=== PATIENT | female | born 1970 | race American Indian/Alaskan Native ===

== ENCOUNTER 2019-07-23 11:26 | Emergency (ER) | payer OTHER ==
--- NOTE | 2019-07-23 11:24 | EDM.PDOC ---
ED HPI GENERAL MEDICAL PROBLEM - General Chief Complaint: Skin Complaint Stated Complaint: AMBULANCE Time Seen by Provider: 07/23/19 11:30 Source of Information: Reports: Patient History Limitations: Reports: No Limitations - History of Present Illness INITIAL COMMENTS - FREE TEXT/NARRATIVE: patient comes to the emergency department today by ambulance from the [facility] clinic with concerns of a painful lump in her right axilla. The last time the patient shaves her armpits was about a week ago. She noticed on Saturday that she had a small lump in her axilla that is slowly gotten worse over the past few days. It is gotten much larger. It is painful hot. She denies any fever or chills. It was noted that her blood pressure was in the 90s systolically at the [facility] clinic. She was given 2 L of fluid prior to transfer. She denies any weakness dizziness lightheadedness. No chest pain or shortness of breath or difficulty breathing. No pain or paresthesia of the right upper extremity other than to the area of induration in the right axilla. Other Treatments [employer]: 0330 Ibuprofen 600 mg and cold medication taken. Right Axillary Pain Score (Numeric/FACES): 8 - Related Data Allergies Allergy/AdvReac Type Severity Reaction Status Date / Time No Known Allergies Allergy Verified 07/23/19 11:05 Home Meds: Home Meds ISOtretinoin [Absorica] 30 mg PO QPM 07/23/19 [History] Multivitamin [Multivitamins] 1 each PO DAILY 07/23/19 [History] ED ROS GENERAL - Review of Systems Review Of Systems: ROS reveals no pertinent complaints other than HPI. ED EXAM, SKIN/RASH Exam: See Below Exam Limited By: No Limitations General Appearance: Alert, WD/WN, Mild Distress (mildly uncomfortable in pain) Head: Atraumatic, Normocephalic Neck: Normal Inspection, Supple Respiratory/Chest: No Respiratory Distress, Lungs Clear, Normal Breath Sounds, No Accessory Muscle Use Cardiovascular: Normal Peripheral Pulses, Regular Rate, Rhythm Peripheral Pulses: 2+: Radial (L), Radial (R) GI/Abdominal: Normal Bowel Sounds, Soft, Non-Tender Back Exam: Normal Inspection Extremities: No: Normal Inspection (examination of the right axilla. There is about a golf ball sized area of erythema induration with fluctuance in the crease of the axilla. This is quite superficial it is hot red and tender. There is no streaks. I do not feel any lymphadenopathy. Examination of the right breast is unremarkable without any erythema lumps or tenderness. The rest of the exam the right upper extremity is unremarkable.) Neurological: Alert, Oriented Location, Skin: Upper Extremity, Right (see extremity exam above for the concerns of an abscess in the right axilla), Axillary (abscess right axilla) Associated features: Warmth, Tenderness, Swelling, Induration Lymphatic: No Adenopathy ED SKIN PROCEDURES - I&D Skin Prep: Providone-Iodine (Betadine) Local Anesthesia: Lidocaine: 1% with EPI Local Anesthesia - Bupivicaine (Marcaine): 0.5% Plain Local Anesthetic Volume: Other (10) Area Incised With: 11 Blade Drainage: Purulent, Bloody, Small Amount Probed to Break Up Loculations: Yes Packed With: 1/4 in. Iodoform Complications: No Course - Vital Signs Last Recorded V/S: Last Vital Signs Temp 36.8 C 07/23/19 10:59 Pulse 79 07/23/19 10:59 Resp 18 07/23/19 10:59 BP Pulse Ox 100 07/23/19 10:59 - Orders/Labs/Meds Orders: Active Orders 24 hr Category Date Time Status CULTURE BLOOD [BC] Stat Lab 07/23/19 11:16 Received CULTURE BLOOD [BC] Stat Lab 07/23/19 11:21 Received CULTURE WOUND + SMEAR [RM] Stat Lab 07/23/19 12:07 Results Blood Culture x2 Reflex Set [OM.PC] Stat Oth 07/23/19 11:07 Ordered Labs: Laboratory Tests 07/23/19 07/23/19 07/23/19 Range/Units 11:16 11:16 11:16 WBC 15.9 H (5.0-10.0) 10^3/uL RBC 4.35 (4.2-5.4) 10^6/uL Hgb 13.0 (12.0-16.0) g/dL Hct 39.1 (37.0-47.0) % MCV 89.9 (80-100) fL MCH 29.9 (27.0-34.0) pg MCHC 33.2 (33.0-35.0) g/dL Plt Count 227 (150-450) 10^3/uL Neut % (Auto) 80.0 H (42.2-75.2) % Lymph % (Auto) 11.6 L (20.5-50.1) % Metcalfe % (Auto) 7.5 (2-8) % Eos % (Auto) 0.8 L (1.0-3.0) % Baso % (Auto) 0.1 (0.0-1.0) % Sodium 137 (135-145) mmol/L Potassium 3.5 L (3.6-5.0) mmol/L Chloride 106 (101-111) mmol/L Carbon Dioxide 24.0 (21.0-31.0) mmol/L Anion Gap 10.5 BUN 12 (7-18) mg/dL Creatinine 0.6 (0.6-1.3) mg/dL Est Cr Clr Drug Dosing 102.06 mL/min Estimated GFR (MDRD) > 60 Glucose 92 (74-105) mg/dL Lactic Acid 0.9 (0.5-2.2) mmol/L Calcium 7.8 L (8.4-10.2) mg/dl C-Reactive Protein (0.0-1.3) mg/dL 07/23/ Range/Units 11:16 WBC (5.0-10.0) 10^3/uL RBC (4.2-5.4) 10^6/uL Hgb (12.0-16.0) g/dL Hct (37.0-47.0) % MCV (80-100) fL MCH (27.0-34.0) pg MCHC (33.0-35.0) g/dL Plt Count (150-450) 10^3/uL Neut % (Auto) (42.2-75.2) % Lymph % (Auto) (20.5-50.1) % [place]calfe % (Auto) (2-8) % Eos % (Auto) (1.0-3.0) % Baso % (Auto) (0.0-1.0) % Sodium (135-145) mmol/L Potassium (3.6-5.0) mmol/L Chloride (101-111) mmol/L Carbon Dioxide (21.0-31.0) mmol/L Anion Gap BUN (7-18) mg/dL Creatinine (0.6-1.3) mg/dL Est Cr Clr Drug Dosing mL/min Estimated GFR (MDRD) Glucose (74-105) mg/dL Lactic Acid (0.5-2.2) mmol/L Calcium (8.4-10.2) mg/dl C-Reactive Protein 6.4 H (0.0-1.3) mg/dL Meds: Medications Discontinued Medications Generic Name Dose Route Start Last Admin Trade Name Freq PRN Reason Stop Dose Admin Bupivacaine HCl 30 ml 07/23/19 11:09 07/23/19 11:46 Marcaine 0.5% INFILT 07/23/19 11:10 30 ml ONETIME ONE Administration Hydromorphone HCl 1 mg 07/23/19 11:08 07/23/19 11:43 Dilaudid IVPUSH 07/23/19 11:09 1 mg ONETIME ONE Administration Vancomycin HCl 1,500 mg/ 500 mls @ 333.333 mls/hr 07/23/19 11:07 07/23/19 11: 45 Sodium Chloride IV 07/23/19 12:36 333.333 mls/hr ONETIME ONE Administration Lidocaine/Epinephrine 20 ml 07/23/19 11:09 07/23/19 11:46 Xylocaine 1% With Epinephrine 1:100,000 INJECT 07/23/19 11:10 20 ml ONETIME ONE Administration Midazolam HCl 2 mg 07/23/19 11:47 07/23/19 11:51 Versed 1 Mg/Ml IVPUSH 07/23/19 11:48 2 mg ONETIME ONE Administration Ondansetron HCl 4 mg 07/23/19 11:08 07/23/19 11:43 Zofran IV 07/23/19 11:09 4 mg ONETIME ONE Administration - Re-Assessments/Exams Free Text/Narrative Re-Assessment/Exam: 07/23/19 14:42 the patient was given Dilaudid for pain. Verbal consent was obtained from the patient for an incision and drainage of the abscess of the right axilla. She was given Versed for anxiolytic. I&D without complication wound culture pending. Vancomycin IV piggyback given. We will have her follow-up with [facility] tomorrow for reassessment and packing of the wound. Bactrim by mouth twice a day 10 days. She feels much better she was never hypotensive while in the emergency department. Patient is comfortable and her questions are answered. Departure - Departure Time of Disposition: 12:57 Disposition: Home, Self-Care 01 Clinical Impression: Abscess - Discharge Information Instructions: Skin Abscess, [id number] Forms: ED Department Discharge Additional Instructions: Tylenol and or Ibuprofen as needed for pain. Warm packs to the right axilla 4 times a day until healed. Be seen at [facility] tomorrow for wound repacking. Bactrim DS, 1 tablet twice daily for the next 10 days. RX given to the patient. #20. If pain not controlled with above. [place], 1 tablet every 6 hrs as needed for pain. Caution sedation. #12. Return to the ED if new or worsening symptoms. - My Orders Last 24 Hours: My Active Orders 07/23/19 11:07 Blood Culture x2 Reflex Set [OM.PC] Stat 07/23/19 11:16 CULTURE BLOOD [BC] Stat 07/23/19 11:21 CULTURE BLOOD [BC] Stat 07/23/19 12:07 CULTURE WOUND + SMEAR [RM] Stat - Assessment/Plan Last 24 Hours: My Active Orders 07/23/19 11:07 Blood Culture x2 Reflex Set [OM.PC] Stat 07/23/19 11:16 CULTURE BLOOD [BC] Stat 07/23/19 11:21 CULTURE BLOOD [BC] Stat 07/23/19 12:07 CULTURE WOUND + SMEAR [RM] Stat Assessment:: Right axilla abscess I/D of Right axilla abscess. Plan: Tylenol and or Ibuprofen as needed for pain. Warm packs to the right axilla 4 times a day until healed. Be seen at [facility] tomorrow for wound repacking. Bactrim DS, 1 tablet twice daily for the next 10 days. RX given to the patient. #20. If pain not controlled with above. [place], 1 tablet every 6 hrs as needed for pain. Caution sedation. #12. Return to the ED if new or worsening symptoms.
[~2019-07-23 11:26] MED LIST: Bupivacaine 0.5% 30 ML SDV INFILT ONE; HYDROmorphone 1 MG/ML Syringe IVPUSH ONE; Lidocaine 1% with EPINEPHrine 1:100,000 20 ML MDV INJECT ONE; Ondansetron 4 MG/2 ML SDV IV ONE
[2019-07-23] MEDS ORDERED: Midazolam 1 MG/ML 2 ML SDV IVPUSH ONE (11:47)
[2019-07-23 11:53] LABS: ANION GAP 10.5; CHLORIDE,CL 106 mmol/L (101-111); SODIUM,NA 137 mmol/L (135-145)
== END 2019-07-23 13:58 | disposition home or self-care (01) ==
LOC: DL.ED 11:26
DX: L02.411 Cutaneous abscess of right axilla (principal)
CPT/HCPCS: 10061; 36415; 80048; 83605; 85025; 86140; 87040; 87070; 87077; 87186; 87205; 96365; 96375; 99283; J1170; J2250; J2405; J3370; J3490; J7040

== ENCOUNTER 2020-05-24 06:29 | Day surgery (SDC) | payer OTHER ==
[~2020-05-24 06:29] MED LIST changes: -Bupivacaine 0.5% 30 ML SDV INFILT ONE; +Dextrose 5%-0.45% NaCl 1,000 ML IV SCH; -HYDROmorphone 1 MG/ML Syringe IVPUSH ONE; -Lidocaine 1% with EPINEPHrine 1:100,000 20 ML MDV INJECT ONE; -Ondansetron 4 MG/2 ML SDV IV ONE; +Sodium Chloride 0.9% 10 ML Syringe FLUSH PRN
[2020-05-24] MEDS ORDERED: fentaNYL 100 MCG/2 ML SDV IV ONE ×3 (06:30→07:37)
[2020-05-24] MEDS ORDERED: Midazolam 1 MG/ML 2 ML SDV IV ONE ×7 (06:30→07:48)
[2020-05-24] MEDS ORDERED: Midazolam 1 MG/ML 2 ML SDV ONE (06:48)
[2020-05-24] MEDS ORDERED: fentaNYL 100 MCG/2 ML SDV ONE (06:48)
--- NOTE | 2020-05-24 15:24 | OR ---
DATE: 05/24/2020 PROCEDURE PERFORMED: Total colonoscopy. INSTRUMENT USED: PCF-H190DL Olympus video colonoscope. PREMEDICATIONS: Fentanyl 100 mcg intravenous, Versed 4 mg intravenous. Nasal O2 cannula. The procedure was done under pulse oximetry, BP recording, and surveillance monitor. INDICATION: Screening colonoscopy examination is done for detection of any polypoid lesions and removal, endoscopic hemostasis therapy if needed. DESCRIPTION OF PROCEDURE: Initial rectal exam was unremarkable. Rigid anoscopy was normal. The colonoscope was passed with ease. Numerous scattered diverticula were noted, more so in the distal left colon, along with some deformity. The scope was passed with ease to the ileocecal area. Photographs were taken of the normal-appearing cecum, identified by landmarks of appendiceal orifice and double-bulged ileocecal folds. No bleeding was noted from any of the visualized areas at the commencement of the examination. The bowel preparation was found to be inadequate, [place] Scale 2 in all the regions, total score 6. No stricture. No vascular ectasia. No large isolated ulcerations seen. No evidence of diffuse inflammatory bowel disease in the form of friability, contact bleeding, or ulcerations. No polyp or tumor mass identified. Probing the proximal sides of folds and flexures using adequate distention and clearing up the stool material, withdrawal of the scope was made. Cecum to rectum time over 6 minutes. No bleeding was noted from any of the visualized areas at the completion of examination. IMPRESSION: Diverticulosis. The patient tolerated the procedure well. [facility] /[id number]
--- NOTE | 2020-05-25 08:13 | LETTER ---
05/24/[address] [facility] [address] [place] [address] RE: GLORIA SOMMERS : 1970 Dear Ms. Padilla: Ward Gloria Jeremias Mo had colonoscopic examination done this morning and she tolerated the procedure well. I herewith send a copy of the endoscopy note and photographs for your review. Thank you. Sincerely, [facility] /[id number]
== END 2020-05-24 09:55 | disposition home or self-care (01) ==
LOC: DL.ENDO 06:29
PROVIDERS: ATTEND Internal Medicine Gastroenterology
DX: Z12.11 Encounter for screening for malignant neoplasm of colon (principal); K57.30 Diverticulosis of large intestine without perforation or abscess without bleeding; F17.210 Nicotine dependence, cigarettes, uncomplicated; E78.5 Hyperlipidemia, unspecified; E66.09 Other obesity due to excess calories; Z90.49 Acquired absence of other specified parts of digestive tract; Z98.890 Other specified postprocedural states; Z86.39 Personal history of other endocrine, nutritional and metabolic disease; Z68.41 Body mass index [BMI] 40.0-44.9, adult
CPT/HCPCS: 45378; J2250; J3010; J7042